=== PATIENT | female | born 1985 | race African-American/Black ===

== ENCOUNTER 2017-01-23 16:41 | Emergency (ER) | payer OTHER ==
[~2017-01-23] VITALS: Ht 152.4 cm; Wt 67.1 kg
[2017-01-23 16:45] VITALS: BP 136/98
[2017-01-23] MEDS ORDERED: NORCO 5-325 TA1 EACH PO (17:11)
[2017-01-23] MEDS ORDERED: IBUPROFEN 600600 M1 PO (17:11)
[2017-01-23] MEDS ORDERED: TIZANIDINE HCL4 MG PO (17:11)
[2017-01-23] MEDS ORDERED: UNICOMPLEX M TA1 TA1 PO (17:36)
[2017-01-23] MEDS ORDERED: NAPROSYN500 MG PO (17:36)
== END 2017-01-23 17:49 | disposition home or self-care (01) ==
LOC: ER 16:41
DX: S49.91XA Unspecified injury of right shoulder and upper arm, initial encounter (principal); F17.210 Nicotine dependence, cigarettes, uncomplicated; F10.99 Alcohol use, unspecified with unspecified alcohol-induced disorder; Z88.8 Allergy status to other drugs, medicaments and biological substances; Z88.1 Allergy status to other antibiotic agents; Z88.6 Allergy status to analgesic agent; Y04.8XXA Assault by other bodily force, initial encounter; Y93.89 Activity, other specified; Y92.89 Other specified places as the place of occurrence of the external cause; Y99.8 Other external cause status